=== PATIENT | female | born 1990 | race Caucasian/White ===

== ENCOUNTER 2023-04-24 05:20 | Inpatient (IN) | payer OTHER ==
[2023-04-24] MEDS ORDERED: ELECTROLYTE-148 SOLN 1,000 ML IV SCH ×2 (06:00→08:30)
[2023-04-24 06:37] LABS: BASO % 0.5 % (0-2.0); EOS % 0.3 % (0-4.5); HEMATOCRIT 39.8 % (32.4-45.2); HEMOGLOBIN 13.5 GM/dL (10.7-15.3); LYMPH % 17.6 % (8-40); MCH 28.2 pg (25.7-33.7); MEAN CELL VOLUME 82.8 fl (80-96); MEAN PLT VOLUME 8.5 fl (7.5-11.1); MONO % 5.1 % (3.8-10.2); NEUT % 76.5 % (42.8-82.8); PLATELET COUNT 257 10^3/uL (134-434); RBC 4.81 M/mm3 (3.60-5.2); RDW 14.8 % (11.6-15.6); WHITE BLOOD COUNT 14.4 K/mm3 (4.0-10.0)
[2023-04-24 06:40] LABS: INR 0.9 (0.83-1.09); PROTHROMBIN TIME (PATIENT) 10.5 SEC (9.7-13.0)
[2023-04-24 06:43] LABS: ACTIVATED PTT 26.6 SECONDS (25.2-36.5)
[2023-04-24 06:53] LABS: POTASSIUM 3.7 mmol/L (3.5-5.1)
[2023-04-24 06:54] LABS: CALCIUM 8.8 mg/dL (8.5-10.1)
[2023-04-24 06:55] LABS: BLOOD UREA NITROGEN 12.6 mg/dL (7-18)
[2023-04-24 06:58] LABS: CREATININE 0.6 mg/dL (0.55-1.3)
[2023-04-24 07:09] VITALS: BMI 21.7
[2023-04-24] MEDS ORDERED: FENTANYL/BUPIVACAINE/NS/PF - PCEA - 50 ML DISP.SYRIN EP ONE (07:35)
[2023-04-24] MEDS ORDERED: FENTANYL CITRATE/PF 50 MCG/ML VIAL ONE (07:52)
[2023-04-24] MEDS ORDERED: OXYTOCIN 30 UNITS in 0.9% NS 30 UNIT/500 ML INFUS.BAG IVPB SCH (08:30)
[2023-04-24] MEDS ORDERED: NALOXONE HCL 0.4 MG/ML VIAL IVPUSH PRN (09:43)
[2023-04-24] MEDS ORDERED: FENTANYL/BUPIVACAINE/NS/PF - PCEA - 50 ML DISP.SYRIN EP SCH (10:00)
[2023-04-24] MEDS ORDERED: BENZOCAINE 20% 57 GM BOTTLE TP PRN (10:11)
[2023-04-24] MEDS ORDERED: BENZOCAINE 28 GM HEMORRHOIDAL OINTMENT TP PRN (10:11)
[2023-04-24] MEDS ORDERED: BISACODYL 10 MG SUPP.RECT RC PRN (10:11)
[2023-04-24] MEDS ORDERED: METHYLERGONOVINE MALEATE 0.2 MG/1 ML AMP IM PRN (10:11)
[2023-04-24] MEDS ORDERED: ACETAMINOPHEN 325 MG TABLET (FP) PO PRN (10:11)
[2023-04-24] MEDS ORDERED: WITCH HAZEL 50% (TUCKS) 40 PAD/JAR PAD TP PRN (10:11)
[2023-04-24] MEDS ORDERED: oxyCODONE HCL 5 MG TABLET PO PRN (10:11)
[2023-04-24] MEDS ORDERED: OXYTOCIN 20 UNITS in 0.9% NS 20 UNIT/1,000 ML INFUS.BAG IV SCH (10:15)
[2023-04-24] MEDS ORDERED: OXYTOCIN 20 UNITS in 0.9% NS 20 UNIT/1,000 ML INFUS.BAG IV ONE (10:53)
[2023-04-24] MEDS ORDERED: LIDOCAINE HCL 1% PRESERVATIVE FREE - 30ML VIAL ONE (11:15)
[2023-04-24 12:11] LABS: HIV INTERPRETATION NEGATIVE (NEGATIVE)
[2023-04-24] MEDS: IBUPROFEN 600 MG TABLET (FP) PO PRN (21:31)
[2023-04-25 08:37] LABS: BASO % 0.4 % (0-2.0); EOS % 0.3 % (0-4.5); HEMATOCRIT 28.7 % (32.4-45.2); HEMOGLOBIN 9.8 GM/dL (10.7-15.3); LYMPH % 15.2 % (8-40); MCH 28.6 pg (25.7-33.7); MCHC 34.2 g/dl (32.0-36.0); MEAN CELL VOLUME 83.5 fl (80-96); MEAN PLT VOLUME 8.3 fl (7.5-11.1); NEUT % 79.1 % (42.8-82.8); PLATELET COUNT 185 10^3/uL (134-434); RBC 3.44 M/mm3 (3.60-5.2); RDW 14.1 % (11.6-15.6); WHITE BLOOD COUNT 14.9 K/mm3 (4.0-10.0)
[2023-04-25] MEDS: PRENATAL VITAMINS W/ FOLIC ACID TABLET (FP) PO SCH (09:08)
[2023-04-25] MEDS: IBUPROFEN 600 MG TABLET (FP) PO PRN ×2 (09:09→19:56)
[2023-04-25] MEDS: FERROUS SO4 325 MG TABLET (FP) PO ONE ×2 (09:09→10:39)
[2023-04-25] MEDS ORDERED: SENNOSIDES/DOCUSATE COMBO (SENNA PLUS) TABLET (UD) PO PRN (22:00)
[2023-04-26] MEDS: IBUPROFEN 600 MG TABLET (FP) PO PRN ×2 (03:19→11:12)
[2023-04-26 08:07] VITALS: RESP 16
[2023-04-26 08:13] VITALS: BP 118/68; PULSE 71; TEMP 98
[2023-04-26] MEDS: PRENATAL VITAMINS W/ FOLIC ACID TABLET (FP) PO SCH (10:00)
== END 2023-04-26 15:20 | disposition home or self-care (01) | DRG 560 ==
LOC: JLDR 05:20 → J3W 15:10
PROVIDERS: ADMIT Obstetrics & Gynecology; ATTEND Obstetrics & Gynecology
PROC: 10D07Z6 Extraction of Products of Conception, Vacuum, Via Natural or Artificial Opening (ICD-10-PCS; principal; 2023-04-24)
DX: O48.0 Post-term pregnancy (principal); Z3A.40 40 weeks gestation of pregnancy; O66.5 Attempted application of vacuum extractor and forceps; Z37.0 Single live birth
CPT/HCPCS: 36415; 80048; 85025; 85610; 85730; 86780; 86850; 86900; 86901; 87389